=== PATIENT | female | born 1955 | race Caucasian/White ===

== ENCOUNTER 2021-12-12 05:40 | Observation (INO) ==
[2021-12-12] MEDS ORDERED: Acetaminophen 325 MG TABLET PO PRN ×2 (09:21→16:59)
[2021-12-12] MEDS ORDERED: Naloxone 0.4 MG/ML INJ IVP PRN ×2 (09:21→16:59)
[2021-12-12] MEDS ORDERED: Ketorolac 30 MG/ML VIAL IVP PRN (09:21)
[2021-12-12] MEDS ORDERED: Ondansetron 4 MG/2 ML VIAL IVP PRN ×2 (09:21→16:59)
[2021-12-12] MEDS ORDERED: Ringers Solution, Lactated 1,000 ML IVC SCH (10:00)
[2021-12-12 10:04] LABS: Basophils % 0.1 %; Eosinophils % 0.1 %; Hematocrit 40.9 % (35.3-44.9); Hemoglobin 12.9 g/dL (11.5-15.4); Immature Granulocytes % 0.5 % (0-4); Lymphocytes # 1.2 K/mcL (0.6-4.6); Mean Corpuscular HGB Conc 31.5 g/dL (31.6-35.5); Mean Corpuscular Hemoglobin 26.2 pg (28.0-33.3); Mean Corpuscular Volume 83.1 fL (83.0-100.0); Mean Platelet Volume 10.8 fL (9.4-12.4); Monocytes # 0.9 K/mcL (0.0-1.3); Monocytes % 5.6 %; Neutrophils # 14.4 K/mcL (1.6-8.9); Platelet Count 174 K/mcL (140-400); Red Blood Count 4.92 M/mcL (3.82-4.97); Red Cell Distribution Width 15.4 % (11.5-14.5); Segmented Neutrophils % 86.7 %; White Blood Count 16.6 K/mcL (4.3-11.1)
[2021-12-12 10:21] LABS: Calcium 9.3 mg/dL (8.6-10.3); Potassium 4.3 mEq/L (3.5-5.1)
[2021-12-12] MEDS ORDERED: Iopamidol - 300 50 ML VIAL ONE (12:39)
[2021-12-12] MEDS ORDERED: *HR* FentaNYL (PF) 100 MCG/2 ML VIAL ONE ×2 (12:42→14:45)
[2021-12-12] MEDS ORDERED: *HR* Propofol 200 MG/20 ML VIAL IVP ONE ×2 (12:42→14:42)
[2021-12-12] MEDS ORDERED: Acetaminophen IV 1,000 MG/100 ML BAG IVPB PRN (12:58)
[2021-12-12] MEDS ORDERED: Ondansetron 4 MG/2 ML VIAL ONE (14:27)
[2021-12-12] MEDS ORDERED: *HR* Succinylcholine 200 MG/10 ML VIAL IVP ONE (14:34)
[2021-12-12] MEDS ORDERED: Lidocaine -MPF 2% 2 ML VIAL ONE (14:34)
[2021-12-12] MEDS ORDERED: Ketamine HCL *QUVA* 50mg (1mL) SYRINGE ONE (14:49)
[2021-12-12] MEDS ORDERED: cefTRIAXone 1,000 MG in 0.9 % Sodium Chloride 10 ML IVP SCH (15:00)
[2021-12-12] MEDS ORDERED: CeFAZolin Syr 3,000MG/30 ML 3,000 MG/30 ML SYRINGE IVPB ONE (15:00)
[2021-12-12] MEDS ORDERED: *HR* Nalbuphine 10 MG/ML AMPUL ONE (15:04)
[2021-12-12] MEDS: *HR* FentaNYL (PF) 100 MCG/2 ML VIAL IVP PRN ×4 (15:36→15:57)
[2021-12-12] MEDS ORDERED: *HR* HYDROmorphone (PF) 1 MG/ML SYRINGE IVP PRN (17:57)
[2021-12-12] MEDS ORDERED: Hyoscyamine SL 0.125 MG TAB.SUBL SL PRN (17:57)
[2021-12-12] MEDS ORDERED: Acetaminophen IV 1,000 MG/100 ML BAG IVPB SCH (19:00)
[2021-12-12] MEDS: Acetaminophen IV 1,000 MG/100 ML BAG IVPB SCH (21:06)
[2021-12-13] MEDS: Acetaminophen IV 1,000 MG/100 ML BAG IVPB SCH ×5 (00:34→23:49)
[2021-12-13] MEDS ORDERED: cefTRIAXone 1,000 MG in 0.9 % Sodium Chloride 10 ML IVP SCH (09:00)
[2021-12-13] MEDS: cefTRIAXone 1,000 MG in 0.9 % Sodium Chloride 10 ML IVP SCH (09:49)
[2021-12-13 16:08] LABS: Basophils % 0.1 %; Eosinophils % 0.1 %; Hemoglobin 11.5 g/dL (11.5-15.4); Immature Granulocytes % 0.5 % (0-4); Lymphocytes # 1.3 K/mcL (0.6-4.6); Lymphocytes % 7.4 %; Mean Corpuscular HGB Conc 31.9 g/dL (31.6-35.5); Mean Corpuscular Hemoglobin 27.1 pg (28.0-33.3); Mean Corpuscular Volume 84.7 fL (83.0-100.0); Mean Platelet Volume 11.9 fL (9.4-12.4); Monocytes # 1.2 K/mcL (0.0-1.3); Neutrophils # 14.4 K/mcL (1.6-8.9); Platelet Count 179 K/mcL (140-400); Red Blood Count 4.25 M/mcL (3.82-4.97); Red Cell Distribution Width 15.6 % (11.5-14.5); Segmented Neutrophils % 84.9 %; White Blood Count 16.9 K/mcL (4.3-11.1)
[2021-12-13 17:00] LABS: Calcium 9.6 mg/dL (8.6-10.3); Potassium 4.4 mEq/L (3.5-5.1)
[2021-12-13 17:38] LABS: Bilirubin,Urine Negative (Negative); Blood,Urine Large (Negative); Clarity,Urine Turbid (Clear); Color,Urine Light-Red (Yellow); Glucose,Urine (UA) Normal (Normal); Ketones,Urine Negative (Negative); Leukocyte Esterase,Urine Large (Negative); Nitrite,Urine Negative (Negative); PH,Urine 6.5 pH Units (5.0-8.0); Protein,Urine 200 mg/dL (Neg-Trace); Specific Gravity,Urine 1.024 (1.010-1.025); Urobilinogen,Urine Normal (Normal)
[2021-12-14 05:16] LABS: Basophils % 0.1 %; Eosinophils # 0.1 K/mcL (0.0-0.6); Eosinophils % 0.8 %; Hematocrit 34.7 % (35.3-44.9); Hemoglobin 11.1 g/dL (11.5-15.4); Immature Granulocytes % 0.4 % (0-4); Lymphocytes # 2.1 K/mcL (0.6-4.6); Lymphocytes % 14.4 %; Mean Corpuscular Hemoglobin 26.7 pg (28.0-33.3); Mean Corpuscular Volume 83.6 fL (83.0-100.0); Mean Platelet Volume 12.2 fL (9.4-12.4); Monocytes # 1.2 K/mcL (0.0-1.3); Monocytes % 8.2 %; Platelet Count 178 K/mcL (140-400); Red Blood Count 4.15 M/mcL (3.82-4.97); Red Cell Distribution Width 15.5 % (11.5-14.5); Segmented Neutrophils % 76.1 %; White Blood Count 14.5 K/mcL (4.3-11.1)
[2021-12-14 05:40] LABS: Calcium 9.3 mg/dL (8.6-10.3); Potassium 3.7 mEq/L (3.5-5.1)
[2021-12-14] MEDS: Acetaminophen IV 1,000 MG/100 ML BAG IVPB SCH (05:44)
[2021-12-14] MEDS ORDERED: 0.9 % Sodium Chloride 1,000 ML IVC SCH (07:30)
[2021-12-14] MEDS: cefTRIAXone 1,000 MG in 0.9 % Sodium Chloride 10 ML IVP SCH (09:43)
[2021-12-14 10:54] VITALS: BP 157/87; PULSE 78; TEMP 98.5; O2SAT 95
== END 2021-12-14 14:55 | disposition home or self-care (01) ==
LOC: 3ANU → SUATTDRO 08:53
PROVIDERS: ADMIT Internal Medicine; ATTEND Internal Medicine